=== PATIENT | female | born 2000 | race Caucasian/White ===

== ENCOUNTER 2024-03-22 12:32 | Emergency (ER) | payer BC, SELFPAY ==
[2024-03-22 12:43] VITALS: BP 117/69; PULSE 78; RESP 18; TEMP 36.7; O2SAT 100
[2024-03-22 12:50] VITALS: BP 117/69; PULSE 78; RESP 18; TEMP 36.7; O2SAT 100
--- NOTE | 2024-03-22 13:14 | ED.URI ---
HPI - URI/Sore Throat General Chief Complaint: Upper Respiratory Infection Stated Complaint: strep symptoms Time Seen by Provider: 03/22/24 12:57 Source: patient and RN notes reviewed Mode of arrival: ambulatory Limitations: no limitations History of Present Illness HPI Narrative: Patient presents today with a 6 day history of cough, congestion, rhinorrhea with a 4 day history of sore throat and a 2 day history of decreased taste. She has tried cough drops, DayQuil, and NyQuil without relief and currently rates her pain 6/10. Denies any known sick contacts. Patient works in a veterinary office. Related Data Home Medications Medication Instructions Recorded Confirmed Unknown Control 03/22/24 Unknown Migraine Medication 03/22/24 Allergies Allergy/AdvReac Type Severity Reaction Status Date / Time No Known Allergies Allergy Verified 03/22/24 12:49 Review of Systems Review of Systems: CONSTITUTIONAL: Denies body aches, fever, chills, or sweats. EYES: Denies visual changes, redness, or discharge. ENT: Denies otalgia.+ congestion, rhinorrhea, sore throat, decreased taste CARDIOVASCULAR: Denies chest pain, palpitations, or edema. RESPIRATORY: Denies dyspnea.+ cough GASTROINTESTINAL: Denies abdominal pain, nausea, vomiting, or diarrhea. GENITOURINARY: Denies dysuria or hematuria. SKIN: Denies rash, itching, or wounds. MUSCULOSKELETAL: Denies back pain, joint pain, or myalgia. NEUROLOGIC: Denies headache, numbness, tingling, or weakness. PSYCH: Denies depression or anxiety. PMFSH Comments At time of signature, I have reviewed and agree with nursing past medical, surgical, social and family history unless otherwise noted. Please see nursing chart for further information. There is no relevant family history pertinent to the presenting complaint Exam Narrative: GENERAL: Mildly ill-appearing, well-nourished, and in no acute distress. HEAD: Normocephalic, atraumatic. EYES: EOMI. No redness or drainage. Conjunctivae normal. ENT: Mucous membranes pink and moist. Nares congested. No rhinorrhea. TMs normal bilaterally. Throat normal. Uvula midline. NECK: Normal AROM. Supple. No lymphadenopathy. CHEST: No respiratory distress. Clear to auscultation. HEART: Regular rate and rhythm. No murmur appreciated. EXTREMITIES: Normal range of motion. No edema. SKIN: Warm, dry, no rash. Capillary refill normal. Normal skin turgor. NEURO: No focal deficits. Alert and oriented x3. Gait steady. PSYCH: Normal affect. No signs of depression or anxiety. Course Course Level of Care: [facility] Visit Vital Signs Vital signs: Vital Signs Temperature 98.1 F 03/22/24 12:43 Pulse Rate 78 03/22/24 12:43 Respiratory Rate 18 03/22/24 12:43 Blood Pressure 117/69 03/22/24 12:43 Pulse Oximetry 100 03/22/24 12:43 Oxygen Delivery Room Air 03/22/24 12:43 Temperature 98.1 F 03/22/24 12:50 Pulse Rate 78 03/22/24 12:50 Respiratory Rate 18 03/22/24 12:50 Blood Pressure 117/69 03/22/24 12:50 Pulse Oximetry 100 03/22/24 12:50 Oxygen Delivery Room Air 03/22/24 12:50 Reviewed MDM - URI/Sore Throat MDM Narrative Medical decision making narrative: Influenza, COVID, and rapid strep negative. Strep culture pending. Symptoms likely viral in etiology. Discussed [id number] medication use and duration of illness. No prescription medications indicated at this time. Anticipatory guidance given. Differential Diagnosis Differential diagnosis: Likely upper respiratory infection, viral infection, influenza, pharyngitis and other (Strep throat, COVID) Lab Data Attestation: I reviewed the patient's lab results. Critical Care Time Critical Care Time Critical Care Time: No Discharge Plan Discharge Clinical Impression: Upper respiratory infection Qualifiers: URI type: unspecified URI Qualified Code(s): J06.9 - Acute upper respiratory infection, unspecified Patient Disposition: Home, Self-Care Condition: Stable Instructions: Upper Respiratory Infection (DC) Additional Instructions: Your influenza, COVID-19, and rapid strep swabs were negative today at [facility]. You will be notified in a few days if the culture comes back positive for strep, and appropriate antibiotics will be called in for you at that time. Your symptoms are likely due to a viral illness, which is not treated with antibiotics. Viral symptoms can be present for up to 7-10 days. Take Tylenol or ibuprofen for fever or pain. Consider starting some Sudafed (pseudoephedrine) and a steroid nasal spray such as Flonase. Rest and stay hydrated. Follow up with your PCP in 5 days if symptoms are not improving. Go to the ER immediately if you have any difficulty breathing or swallowing. Prescriptions: No Action Unknown Control Unknown Migraine Medication Follow-up/Referrals: PHYSICIAN,TEMPLATE CLERK [Primary Care Provider] - Stand Alone Forms: Work/School Release IP Time of Disposition: 13:19
[2024-03-22 13:18] LABS: EDCOVIDSCREEN Negative (Negative); EDINFLUASCREEN Negative (Negative); EDINFLUBSCREEN Negative (Negative); EDSTREPNEGPOS1 Negative (Negative)
--- NOTE | 2024-03-22 13:27 | ED_ITS ---
HPI - URI/Sore Throat General Chief Complaint: Upper Respiratory Infection Stated Complaint: strep symptoms Time Seen by Provider: 03/22/24 12:57 Source: patient and RN notes reviewed Mode of arrival: ambulatory Limitations: no limitations Related Data Home Medications Medication Instructions Recorded Confirmed Unknown Control 03/22/24 Unknown Migraine Medication 03/22/24 Allergies Allergy/AdvReac Type Severity Reaction Status Date / Time No Known Allergies Allergy Verified 03/22/24 12:49 Course Vital Signs Vital signs: Vital Signs Temperature 98.1 F 03/22/24 12:43 Pulse Rate 78 03/22/24 12:43 Respiratory Rate 18 03/22/24 12:43 Blood Pressure 117/69 03/22/24 12:43 Pulse Oximetry 100 03/22/24 12:43 Oxygen Delivery Room Air 03/22/24 12:43 Temperature 98.1 F 03/22/24 12:50 Pulse Rate 78 03/22/24 12:50 Respiratory Rate 18 03/22/24 12:50 Blood Pressure 117/69 03/22/24 12:50 Pulse Oximetry 100 03/22/24 12:50 Oxygen Delivery Room Air 03/22/24 12:50 MDM - URI/Sore Throat Lab Data Labs: Lab Results 03/22/24 Range/Units 13:16 POC Influenza A Ag Negative (Negative) POC Influenza B Ag Negative (Negative) POC SARS CoV-2 Ag Negative (Negative) POC Grp A Strep Screen Negative (Negative) Discharge Plan Discharge Clinical Impression: Upper respiratory infection Qualifiers: URI type: unspecified URI Qualified Code(s): J06.9 - Acute upper respiratory infection, unspecified Patient Disposition: Home, Self-Care Condition: Stable Instructions: Upper Respiratory Infection (DC) Additional Instructions: Your influenza, COVID-19, and rapid strep swabs were negative today at [facility]. You will be notified in a few days if the culture comes back positive for strep, and appropriate antibiotics will be called in for you at that time. Your symptoms are likely due to a viral illness, which is not treated with antibiotics. Viral symptoms can be present for up to 7-10 days. Take Tylenol or ibuprofen for fever or pain. Consider starting some Sudafed (pseudoephedrine) and a steroid nasal spray such as Flonase. Rest and stay hydrated. Follow up with your PCP in 5 days if symptoms are not improving. Go to the ER immediately if you have any difficulty breathing or swallowing. Prescriptions: No Action Unknown Control Unknown Migraine Medication Follow-up/Referrals: PHYSICIAN,BROOMCORN SCRAPER [Primary Care Provider] - Stand Alone Forms: Work/School Release IP Time of Disposition: 13:19
== END 2024-03-22 13:28 | disposition home or self-care (01) ==
PROVIDERS: Emergency Provider Nurse Practitioner
DX: J06.9 Acute upper respiratory infection, unspecified (principal); Z20.822 Contact with and (suspected) exposure to COVID-19
CPT/HCPCS: 87081; 87426; 87804; 87880; 99213; G0463